=== PATIENT | female | born 1960 ===

== ENCOUNTER 2016-09-19 19:02 | Emergency (ER) | payer BC ==
[2016-09-19 19:18] VITALS: BP 134/71; PULSE 74; RESP 16; TEMP 97.8; O2SAT 96
--- NOTE | 2016-09-19 20:07 | ED PDOC ---
Lower Extremity Pain/Injury Time Seen by Provider: 09/19/16 19:44 Chief Complaint (Nursing): Lower Extremity Problem/Injury Chief Complaint (Provider): Pain to the Lumbar Paravertebral area History/Exam Limitations: no limitations Current Symptoms Are (Timing): Still Present Additional Complaint(s): Isa Kim, a 56 year old female, presents to the ED for pain to the lumbar paravertebral area. The patient states that the pain now radiates down her right leg. Denies acute injury or heavy lifting, dysuria, hematuria, abdominal pain and bowel movement problem. Patient denies history of similar pains. Past Medical History Reviewed: Historical Data, Nursing Documentation, Vital Signs Vital Signs: Last Vital Signs Temp 97.8 F 09/19/16 19:15 Pulse 74 09/19/16 19:15 Resp 16 09/19/16 19:15 BP 134/71 09/19/16 19:15 Pulse Ox 96 09/19/16 19:15 - Medical History PMH: Asthma Denies: Chronic Kidney Disease - Family History Family History: States: Unknown Family Hx - Home Medications Home Medications: Ambulatory Orders Medication Instructions Recorded Nitrofurantoin Macrocrystals 100 mg PO BID #14 cap 09/19/16 [Macrobid] - Allergies Allergies/Adverse Reactions: Allergies Allergy/AdvReac Type Severity Reaction Status Date / Time aspirin Allergy RASH Verified 09/19/16 19:19 ciprofloxacin [From Cipro] Allergy RASH Verified 09/19/16 19:19 iodine Allergy SWELLING Verified 09/19/16 19:19 latex Allergy REDNESS Verified 09/19/16 19:19 Review of Systems Genitourinary Female: Negative for: Dysuria, Hematuria Musculoskeletal: Positive for: Back Pain (pain to lumbar parvertebral area radiating down right leg) Physical Exam - Reviewed Nursing Documentation Reviewed: Yes Vital Signs Reviewed: Yes - Physical Exam Appears: Positive for: Non-toxic, No Acute Distress Head Exam: Positive for: ATRAUMATIC, NORMAL INSPECTION, NORMOCEPHALIC Skin: Positive for: Normal Color, Warm, Dry Eye Exam: Positive for: Normal appearance, EOMI, PERRL ENT: Positive for: Normal ENT Inspection Neck: Positive for: Normal, Painless ROM, Supple Cardiovascular/Chest: Positive for: Regular Rate, Rhythm, Chest Non Tender. Negative for: Tachycardia Respiratory: Positive for: Normal Breath Sounds. Negative for: Wheezing, Respiratory Distress Gastrointestinal/Abdominal: Positive for: Normal Exam, Bowel Sounds, Soft. Negative for: Tenderness, Guarding, Rebound Back: Positive for: R CVA Tenderness (CVA tenderness with ROM to hip), Other ( paravertebral tenderness) - ECG O2 Sat by Pulse Oximetry: 96 (RA) Pulse Ox Interpretation: Normal - Radiology X-Ray: Interpreted by Me X-Ray Interpretation: No Acute Disease Medical Decision Making Medical Decision Makin Initial Impression:56 year old female presenting with lumbar paravertebral pain Initial Plan: * CT ABD&PELV w/o PO contrast * RAD Lumbar spine complete * Ultram 50mg PO * Urinalysis * Reevaluation PT with UTI shaina be given macorbid and torodol for pain advised to have pmd f.u Scribe Attestation Documented by [place] Miranda acting as a scribe for Hafsa Mixon PA-C. Scribe Attestation All medical record entries made by the Scribe were at my direction and personally dictated by me. I have reviewed the chart and agree that the record accurately reflects my personal performance of the history, physical exam, medical decision making, and the department course for this patient. I have also personally directed, reviewed, and agree with the discharge instructions and disposition Disposition - Clinical Impression Clinical Impression: UTI (urinary tract infection) - Patient ED Disposition Is Patient to be Admitted: No Counseled Patient/Family Regarding: Studies Performed, Diagnosis, Need For Followup, Rx Given - Disposition Disposition: Routine/Home Disposition Time: 21:26 Condition: STABLE Prescriptions: Nitrofurantoin Macrocrystals [Macrobid] 100 mg PO BID #14 cap Instructions: Urinary Tract Infection in Women (DC) Forms: [employer] (Ukrainian)
[2016-09-19 20:34] LABS: SQUAMOUS EPITHIAL 2 /hpf (0-5); URINE BILIRUBIN NEGATIVE (NEGATIVE); URINE BLOOD SMALL (NEGATIVE); URINE CLARITY CLEAR (Clear); URINE COLOR YELLOW (YELLOW); URINE GLUCOSE (UA) NEG (Normal); URINE LEUKOCYTE ESTERASE LARGE Leu/uL (Negative); URINE NITRATE NEGATIVE (NEGATIVE); URINE PROTEIN NEGATIVE (NEGATIVE); URINE UROBILINOGEN 0.2-1.0 mg/dL (0.2-1.0)
--- NOTE | 2016-09-20 07:33 | RAD ---
PROCEDURE: Radiographs of the Lumbar Spine. HISTORY: lumbar spine COMPARISON: No prior. FINDINGS: BONES: Normal alignment. No listhesis. No fracture. DISC SPACES: Mild disc space narrowing and facet arthropathy. OTHER FINDINGS: None. IMPRESSION: Mild disc space narrowing and facet arthropathy.
== END 2016-09-19 21:32 | disposition home or self-care (01) ==
LOC: H.ER 19:02
DX: N39.0 Urinary tract infection, site not specified (principal)